=== PATIENT | male | born 1945 | race Caucasian/White ===

== ENCOUNTER → 2019-11-18 | Outpatient (CLI) | payer MEDICARE, OTHER ==
--- NOTE | 2019-11-18 12:05 | Diagnostic Imaging Report ---
EXAMINATION: CT low-dose lung cancer screening. INDICATION: 20-ctqj-nxjj smoking history. TECHNIQUE: Routine images of the thorax were obtained using the CT low-dose lung cancer screening protocol. All CT scans use one or more of the following dose optimizing techniques: Automated exposure control, MA and/or KvP adjustment based on a patient size and exam type, or iterative reconstruction. FINDINGS: There are no prior CT chest examinations available for comparison. The plain film examination of the chest performed on 08/27/2012 noted chronic pulmonary changes but failed to show any sign of an acute abnormality. In the interval since the prior exam, a poorly defined mass has developed along the medial aspect of the left upper lung. The mass is contiguous with the left hilum and the descending thoracic aorta. This mass measures approximately 4.9 x 8.1 x 6.7 cm in maximum transverse, AP, and longitudinal dimensions. This mass should be considered neoplastic until proven otherwise. Bronchoscopy would be recommended for further evaluation. There are also coarse interstitial densities in the left upper lung. These may well be chronic in nature. The possibility that these are related to neoplastic spread should also be considered. The lungs are otherwise generally clear. There is no sign of failure, pneumonia, or of a pleural effusion to indicate an acute abnormality. There are emphysematous changes involving both lungs. The heart size is within normal limits. There are extensive coronary artery calcifications noted. The aorta is not abnormally dilated. The thyroid gland is not enlarged. The sections through the upper abdomen fail to show any sign of an acute abnormality. The bone windows are unremarkable for an acute fracture or for a destructive lesion. There are mild compression deformities of T6 and to a lesser extent T8 and T9. I suspect that these are long-standing in nature. IMPRESSION: 1. There is a large irregular mass along the medial aspect of the left upper lung. The mass is contiguous with the aorta and the left hilum, and this mass should be considered neoplastic until proven otherwise. Bronchoscopy would be recommended for further evaluation. If additional imaging is desired, then PET/CT should be obtained. 2. There is no acute cardiopulmonary abnormality noted. 3. There is coronary artery disease. 4. These results were called to Dr. Sid Guzman. LUNG-RADS CATEGORY: 4B. Dictated by: Dictated on workstation # [id number]
== END ==
LOC: RAD 09:54
PROVIDERS: ATTEND Internal Medicine
DX: Z12.2 Encounter for screening for malignant neoplasm of respiratory organs (principal); F17.210 Nicotine dependence, cigarettes, uncomplicated; R91.8 Other nonspecific abnormal finding of lung field; I25.10 Atherosclerotic heart disease of native coronary artery without angina pectoris

== ENCOUNTER 2019-11-23 06:12 | Outpatient (CLI) | payer MEDICARE, OTHER ==
[~2019-11-23] VITALS: Ht 167.7 cm; Wt 65.9 kg
== END 2019-11-23 11:44 | disposition home or self-care (01) ==
LOC: PREOP 06:12
PROVIDERS: ATTEND Internal Medicine Critical Care Medicine
DX: Z01.818 Encounter for other preprocedural examination (principal)

== ENCOUNTER → 2019-11-24 | Outpatient (CLI) | payer MEDICARE, OTHER ==
--- NOTE | 2019-11-24 15:51 | Diagnostic Imaging Report ---
INDICATION: Left upper lobe lung mass. TECHNIQUE: Serum blood glucose level at the time of injection is 93 mg/dL. Patient was administered 13.1 mCi F-18 FDG intravenously and PET imaging was performed from the top of the skull through mid thighs. Noncontrast CT was also performed for attenuation correction and anatomic correlation. All CT scans use one or more of the following dose optimizing techniques: automated exposure control, MA and/or KvP adjustment based on patient size and exam type or iterative reconstruction. COMPARISON: No prior PET study is available for comparison. Comparison is made with the chest screening study from 11/18/2019. FINDINGS: There is symmetric activity throughout the brain. Soft tissues of the neck are unremarkable. There is a large hypermetabolic mass adjacent to the aortic arch on the left side and contiguous with the AP window and left hilum. This measures approximately 6.0 x 7.2 cm. SUV max is approximately 12.3. Right hilum is unremarkable. No pulmonary parenchymal hypermetabolism is seen. Abdomen and pelvis demonstrate physiologic activity within the GI and tracts. Bladder is unremarkable. IMPRESSION: Large hypermetabolic mass in the mediastinum AP window encasing the left mainstem bronchus. This extends into the left hilum. No hypermetabolic foci in the right hilum are seen. Pulmonary parenchyma is unremarkable apart from some minimal interstitial nodular infiltrate in the left upper lobe which could represent postobstructive pneumonitis. No distant metastases are identified. Dictated by: Dictated on workstation # [id number]
== END ==
LOC: RAD 12:34
PROVIDERS: ATTEND Nurse Practitioner Family
DX: R91.8 Other nonspecific abnormal finding of lung field (principal); F17.210 Nicotine dependence, cigarettes, uncomplicated

== ENCOUNTER → 2019-11-27 | Outpatient (CLI) | payer MEDICARE, OTHER ==
[~2019-11-27] MED LIST: RT-ALBUTEROL SULF 2.5 MG/3 ML PRE-MIX VIAL INH ONE
== END ==
LOC: RT 09:01
PROVIDERS: ATTEND Nurse Practitioner Family
DX: J30.9 Allergic rhinitis, unspecified (principal); R91.8 Other nonspecific abnormal finding of lung field; Z72.0 Tobacco use
CPT/HCPCS: 94060; 94640; 94726; 94729

== ENCOUNTER → 2019-11-27 | Outpatient (CLI) | payer MEDICARE, OTHER ==
[2019-11-27 11:44] LABS: BASOPHILS % (AUTO) 0 % (0-10); EOSINOPHILS # (AUTO) 0.4 10^3/uL (0.0-0.3); EOSINOPHILS % (AUTO) 2 % (0-10); HEMATOCRIT 38 % (40-54); HEMOGLOBIN 12.7 G/DL (13.3-17.7); LYMPHOCYTES # (AUTO) 1.6 X 10^3 (1.0-4.0); LYMPHOCYTES % (AUTO) 9 % (12-44); MEAN CORPUSCULAR HEMOGLOBIN 29 PG (25-34); MEAN CORPUSCULAR HGB CONC 33 G/DL (32-36); MEAN CORPUSCULAR VOLUME 87 FL (80-99); MEAN PLATELET VOLUME 9.8 FL (7.4-10.4); MONOCYTES # (AUTO) 1.6 X 10^3 (0.0-1.0); MONOCYTES % (AUTO) 10 % (0-12); NEUTROPHILS % (AUTO) 78 % (42-75); PLATELET COUNT 309 10^3/uL (130-400); RED CELL DISTRIBUTION WIDTH 14.2 % (10.0-14.5); WHITE BLOOD COUNT 16.5 10^3/uL (4.3-11.0)
[2019-11-27 12:30] LABS: BAND NEUTROPHILS 1 %; BASOPHILS % (MANUAL) 0 %; EOSINOPHILS % (MANUAL) 2 %; LYMPHOCYTES % (MANUAL) 7 %; MONOCYTES % (MANUAL) 8 %; NEUTROPHILS % (MANUAL) 81 %; RBC MORPH NORMAL; REACTIVE LYMPHOCYTES 1 %
--- NOTE | 2019-11-27 13:10 | Diagnostic Imaging Report ---
INDICATION: Lung cancer. TIME OF EXAMINATION: 11:52 AM. COMPARISON: Prior chest from 11/25/2019. FINDINGS: The mass in the left hilar region is again noted. The postobstructive pneumonitis has improved since 2 days earlier. The right lung is clear. There is no effusion or pneumothorax. IMPRESSION: Mass in the region of the left hilum and AP window. There has been improvement in the postobstructive pneumonia. Dictated by: Dictated on workstation # [id number]
== END ==
LOC: RAD 10:58
PROVIDERS: ATTEND Nurse Practitioner Family
DX: C34.90 Malignant neoplasm of unspecified part of unspecified bronchus or lung (principal); J44.9 Chronic obstructive pulmonary disease, unspecified; J18.8 Other pneumonia, unspecified organism
CPT/HCPCS: 36415; 71046; 85007; 85027

== ENCOUNTER → 2019-12-23 | Outpatient (CLI) | payer MEDICARE, OTHER ==
--- NOTE | 2019-12-23 09:35 | NUR ---
patient arrived on RA with and O2 sat 87%; patient sat for another 5 mins and O2 sat remained low; RT added 2 L NC to get O2 sat up to 90%; Patient started his 6 mins O2 walk on 2 L and after 2 mins he desatted to 85% which required 4 L NC to finish the O2 walk. Patient is needing 2 L at rest and 4 L on exertion.Patient walked a total of 167 feet
== END ==
LOC: CARD 08:54
PROVIDERS: ATTEND Internal Medicine Critical Care Medicine
DX: C34.12 Malignant neoplasm of upper lobe, left bronchus or lung (principal)
CPT/HCPCS: 94761

== ENCOUNTER 2020-02-10 12:54 | Outpatient (RCR) | payer MEDICARE, OTHER ==
[2020-01-13 13:44] LABS: BASOPHILS % (AUTO) 0 % (0-10); EOSINOPHILS # (AUTO) 0.2 10^3/uL (0.0-0.3); EOSINOPHILS % (AUTO) 2 % (0-10); HEMATOCRIT 35 % (40-54); HEMOGLOBIN 11.3 G/DL (13.3-17.7); LYMPHOCYTES # (AUTO) 0.5 X 10^3 (1.0-4.0); LYMPHOCYTES % (AUTO) 5 % (12-44); MEAN CORPUSCULAR HEMOGLOBIN 28 PG (25-34); MEAN CORPUSCULAR HGB CONC 32 G/DL (32-36); MEAN CORPUSCULAR VOLUME 86 FL (80-99); MEAN PLATELET VOLUME 8.8 FL (7.4-10.4); MONOCYTES # (AUTO) 1.5 X 10^3 (0.0-1.0); MONOCYTES % (AUTO) 15 % (0-12); NEUTROPHILS # (AUTO) 7.8 X 10^3 (1.8-7.8); NEUTROPHILS % (AUTO) 78 % (42-75); PLATELET COUNT 252 10^3/uL (130-400); RED CELL DISTRIBUTION WIDTH 14.9 % (10.0-14.5)
[2020-01-13 14:02] LABS: ALANINE AMINOTRANSFERASE 18 U/L (0-55); ALBUMIN 3.4 GM/DL (3.2-4.5); ALKALINE PHOSPHATASE 112 U/L (40-136); BILIRUBIN,TOTAL 0.3 MG/DL (0.1-1.0); BUN/CREATININE RATIO 33; CALCIUM 9.1 MG/DL (8.5-10.1); CARBON DIOXIDE 25 MMOL/L (21-32); CHLORIDE 102 MMOL/L (98-107); CREATININE SERUM 0.79 MG/DL (0.60-1.30); GFR ESTIMATED > 60; GLUCOSE 109 MG/DL (70-105); POTASSIUM 4.5 MMOL/L (3.6-5.0); SODIUM 136 MMOL/L (135-145); TOTAL PROTEIN 6.9 GM/DL (6.4-8.2)
[2020-02-10 13:23] LABS: BASOPHILS % (AUTO) 0 % (0-10); EOSINOPHILS # (AUTO) 0.4 10^3/uL (0.0-0.3); EOSINOPHILS % (AUTO) 4 % (0-10); HEMATOCRIT 34 % (40-54); HEMOGLOBIN 10.7 G/DL (13.3-17.7); LYMPHOCYTES # (AUTO) 0.5 X 10^3 (1.0-4.0); LYMPHOCYTES % (AUTO) 5 % (12-44); MEAN CORPUSCULAR HEMOGLOBIN 27 PG (25-34); MEAN CORPUSCULAR HGB CONC 32 G/DL (32-36); MEAN CORPUSCULAR VOLUME 84 FL (80-99); MEAN PLATELET VOLUME 8.5 FL (7.4-10.4); MONOCYTES # (AUTO) 1.1 X 10^3 (0.0-1.0); MONOCYTES % (AUTO) 11 % (0-12); NEUTROPHILS # (AUTO) 7.5 X 10^3 (1.8-7.8); NEUTROPHILS % (AUTO) 80 % (42-75); PLATELET COUNT 307 10^3/uL (130-400); RED CELL DISTRIBUTION WIDTH 14.9 % (10.0-14.5); WHITE BLOOD COUNT 9.4 10^3/uL (4.3-11.0)
[2020-02-10 13:40] LABS: ALANINE AMINOTRANSFERASE 19 U/L (0-55); ALBUMIN 3.3 GM/DL (3.2-4.5); ALKALINE PHOSPHATASE 220 U/L (40-136); BILIRUBIN,TOTAL 0.4 MG/DL (0.1-1.0); BUN/CREATININE RATIO 28; CALCIUM 9.4 MG/DL (8.5-10.1); CARBON DIOXIDE 25 MMOL/L (21-32); CHLORIDE 99 MMOL/L (98-107); CREATININE SERUM 0.83 MG/DL (0.60-1.30); GFR ESTIMATED > 60; GLUCOSE 136 MG/DL (70-105); POTASSIUM 5.2 MMOL/L (3.6-5.0); SODIUM 134 MMOL/L (135-145); TOTAL PROTEIN 7.3 GM/DL (6.4-8.2)
== END 2020-03-03 | disposition home or self-care (01) ==
LOC: ONC 12:54
PROVIDERS: ATTEND Internal Medicine Hematology & Oncology
DX: Z51.0 Encounter for antineoplastic radiation therapy (principal); C34.90 Malignant neoplasm of unspecified part of unspecified bronchus or lung
CPT/HCPCS: 77290; 77295; 77300; 77307; 77334; 77336; 77417; 77470; 80053; 85025; 99204; 99213; 99214

== ENCOUNTER 2020-08-27 23:32 | Emergency (ER) | payer MEDICARE, OTHER ==
[~2020-08-27] VITALS: Ht 177 cm; Wt 68.0 kg
[2020-08-27] MEDS ORDERED: EPINEPHrine 0.1 MG/ML 10 ML (HOSPIRA) SYR IJ ONE (23:34)
--- NOTE | 2020-08-28 00:02 | ED CPR ---
HPI-CPR General Chief Complaint: Code Blue Stated Complaint: CODE BLUE Source of Information: Patient Exam Limitations: No Limitations History of Present Illness Date Seen by Provider: Aug 27, 2020 Time Seen by Provider: 23:33 Initial Comments Patient presents to ER by EMS from home with chief complaint that he was vomiting up copious amounts of blood. EMS reports he had a trashcan in front of him with about 2-3 L of bloody emesis with clots. He has a history of lung cancer on hospice. The family at the house was hysterical and could not answer any questions. They could not ascertain if he was a DO NOT RESUSCITATE. En route they had started bagging him as he stop breathing but he had a pulse until the time they arrived. Shortly after he arrived we contacted [facility] and ascertain the patient was DO NOT RESUSCITATE. One round of CPR was initiated with chest compressions and bag valve mask but the patient was vomiting copious amounts of dark brown emesis and he was not intubated. No shocks were delivered and no epinephrine was given. Allergies and Home Medications Allergies Coded Allergies: No Known Drug Allergies (Unverified , 01/16/11) Home Medications No Active Prescriptions or Reported Meds Patient Home Medication List Home Medication List Reviewed: Yes Review of Systems Review of Systems Constitutional: see HPI (history and review of systems per who arrived after him.); No chills, No diaphoresis EENTM: No Blurred Vision, No Double Vision Respiratory: Denies Cough, Denies Shortness of Air Cardiovascular: Denies Chest Pain, Denies Lightheadedness Gastrointestinal: Denies Constipated, Denies Diarrhea; Nausea, Vomiting Genitourinary: Denies Burning, Denies Discharge Musculoskeletal: No no symptoms reported, No back pain Past Scvtqfc-[id number]-Kabbwb Hx Patient Social History Alcohol Use: Denies Use Recreational Drug Use: No Smoking Status: Former Smoker Type Used: Cigarettes Former Smoker, Quit: Nov 16, 2019 Recent Hopitalizations: No Immunizations Up To Date Date of Pneumonia Vaccine: February 18, 2019 Date of Influenza Vaccine: Jul 21, 2019 Seasonal Allergies Seasonal Allergies: No Past Medical History Surgeries: Yes Appendectomy Respiratory: Yes (COUGH, DYSPNEA) Cardiac: No Neurological: No Genitourinary: No Gastrointestinal: No Musculoskeletal: No Endocrine: No HEENT: Yes Cataract Cancer: No Psychosocial: No Integumentary: Yes Psoriasis Blood Disorders: No Physical Exam Vital Signs Capillary Refill : Height, Weight, BMI Height: '" Weight: lbs. oz. kg; 23.43 BMI Method: General Appearance: Severe Distress HEENT: Pharynx Normal, Moist Mucous Membranes Neck: Normal Inspection, Supple Respiratory: Respiratory Distress (no respiratory effort. Bag valve mask on arrival by EMS) Cardiovascular: Other (no carotid or peripheral pulses palpable.) Gastrointestinal: Soft, Abnormal Bowel Sounds (absent) Extremity: No Pedal Edema, Slow Capillary Refill Neurologic/Psychiatric: Other (GCS 3) Progress/Results/Core Measures Progress Progress Note : Time: 23:59 Progress Note Since the patient was on hospice precautions for the started CPR and immediately called hospice company who advises he is a DO NOT RESUSCITATE. We talked to the of the phone who says that it is with his wishes not to be coded and so we immediately ceased our resuscitative efforts. Chaplains summonsed and will allow the some time with the patient. Critical Care Note Critical Care Start Time: 23:30 Stop Time: 23:40 Total Time (minutes) 10 min Date of : Aug 28, 2020 Time of : 23:40 Progress Lek-[id number] suction oropharyngeal airway, chest compressions. Ordered IV epinephrine we did not get a chance to give it. Ordered IV fluids. IV fluids were not initiated as we quickly ascertained through [facility] the patient was a DO NOT RESUSCITATE. 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 Indicated that he had lung cancer and was on hospice care. First pulse check demonstrated PEA, disorganized. Departure Impression Primary Impression: Cardiopulmonary arrest Additional Impressions: Hematemesis Qualified Codes: K92.0 - Hematemesis History of lung cancer in adulthood Hospice care patient Disposition: 20 Condition: Departure-Patient Inst. Decision time for Depature: 20:40 Referrals: NEO CARROLL MD (PCP/Family) Primary Care Physician Patient Instructions: Sudden Cardiac Arrest Scripts No Active Prescriptions or Reported Meds Copy Copies To 1: NEO CARROLL MD, TITUS J Aug 28, 2020 00:02
--- NOTE | 2020-08-28 00:55 | NUR ---
warren called et. pt will not be donating tissue. awaiting response for eye donation
--- NOTE | 2020-08-28 05:00 | NUR ---
[facility] CALL[facility]. UPDATE ON DONTATION STATUS REQUESTED.
--- NOTE | 2020-08-28 07:12 | NUR ---
CALLED [facility] LEFT MESSAGE TO SEE IF THEY HAVE CONTACTED FAMILY. ICE PACK REMAIN ON EYES.
--- NOTE | 2020-08-28 08:07 | NUR ---
CALLED [facility] BACK HE STATES HE IS OK TO GO TO [facility]
--- NOTE | 2020-08-28 08:11 | NUR ---
CALLED [facility] AT [phone] AND INFORMED THAT FAMILY HAS REQUESTED THEM TO CAKE ICER AND PACKER BODY. AND THAT HE HAS BEEN HERE SINCE 2340 LAST NIGHT.
[2020-08-28 08:55] VITALS: BP 0/0
== END 2020-08-28 08:56 | disposition expired ==
LOC: EDUNIT# 23:32 → ER 23:33
DX: I46.9 Cardiac arrest, cause unspecified (principal); K92.0 Hematemesis; Z85.118 Personal history of other malignant neoplasm of bronchus and lung; Z87.891 Personal history of nicotine dependence
CPT/HCPCS: 99291